=== PATIENT | male | born 1975 | race Caucasian/White ===

== ENCOUNTER 2021-09-23 12:13 | Outpatient (REF) | payer BC, SELFPAY ==
[2021-09-23 14:48] LABS: Abs Immature Grans 0.01 10^3/uL (0.0-0.06); Absolute Basophil Count 0.02 10^3/uL (0.0-0.2); Absolute Lymphocyte Count 1.94 10^3/uL (1.2-3.4); Absolute Monocyte Count 0.36 10^3/uL (0.1-0.8); Absolute Neutrophil Count 2.35 10^3/uL (1.2-6.7); Basophils % 0.4; Eosinophils % 7.9; HCT 43.5 % (40.0-50.0); HGB 15.4 g/dL (13.5-17.5); Immature Grans % 0.2; Lymphocytes % 38.2; MCH 30.6 pg (27.0-33.0); MCHC 35.4 % (32.0-36.0); MCV 87 fL (80-95); MPV 9.7 fL (8.0-11.0); Monocytes % 7.1; Neutrophils % 46.2; Platelet Count 190 10^3/uL (130-400); RBC 5.03 10^6/uL (4.36-5.78); RDW 12.4 % (11.8-14.1); RDW-SD 38.7 fL; WBC 5.08 10^3/uL (4.4-10.8)
[2021-09-23 14:55] LABS: ALT 36 U/L (16-63); AST 26 U/L (15-37); Albumin 4.3 g/dL (3.4-5.0); Alkaline Phosphatase 54 U/L (46-116); Anion Gap 10.2 mmol/L (3-11); BUN 23 mg/dL (7-18); Bilirubin, Total 0.2 mg/dL (0.2-1.0); C-Reactive Protein 0.09 mg/dL (0.0-0.3); CO2 23.8 mmol/L (21.0-32.0); CREATININE 1.1 mg/dL (0.70-1.30); Calcium 9.3 mg/dL (8.5-10.1); Chloride 107 mmol/L (98-107); Glucose 95 mg/dL (74-106); Sodium 141 mmol/L (136-145); TSH (W/Ref FT4) 1.04 uIU/mL (0.36-3.74); Total Protein 7.1 g/dL (6.4-8.2)
[2021-09-24 10:41] LABS: Lyme Ab w Rflx to Lyme Confirm Negative (Negative)
[2021-09-24 22:28] LABS: Anaplasma phagocytophilum Negative (Negative); B. miyamotoi PCR Negative (Negative); Babesia divergens/MO-1 Negative (Negative); Babesia duncani Negative (Negative); Babesia microti Negative (Negative); Ehrlichia chaffeensis Negative (Negative); Ehrlichia ewingii/canis Negative (Negative); Ehrlichia muris eauclairensis Negative (Negative)
== END 2021-09-23 12:14 | disposition home or self-care (01) ==
LOC: NCHCN 12:13
PROVIDERS: Visit Provider Family Medicine
DX: R53.83 Other fatigue (principal); M79.18 Myalgia, other site; Z11.8 Encounter for screening for other infectious and parasitic diseases
CPT/HCPCS: 80053; 87798; 84443; 85025; 86140; 86618